=== PATIENT | male | born 1995 ===

== ENCOUNTER 2018-03-25 17:19 | Emergency (ER) | payer OTHER ==
[~2018-03-25] VITALS: Ht 180.3 cm; Wt 63.5 kg
== END 2018-03-25 21:27 | disposition home or self-care (01) ==
LOC: ER 17:19
DX: S61.412A Laceration without foreign body of left hand, initial encounter (principal); W45.8XXA Other foreign body or object entering through skin, initial encounter; Y93.89 Activity, other specified; Y92.89 Other specified places as the place of occurrence of the external cause; Y99.8 Other external cause status